=== PATIENT | female | born 1980 | race Caucasian/White ===

== ENCOUNTER 2022-01-12 11:12 | Outpatient (CLI) | payer BC ==
[~2022-01-12] VITALS: Ht 172.7 cm; Wt 87.1 kg
[2022-01-12] MEDS ORDERED: FAMO20TA3 PO (12:15)
== END 2022-01-12 12:35 | disposition home or self-care (01) ==
LOC: PREOP 11:12
PROVIDERS: ATTEND Surgery
DX: Z01.818 Encounter for other preprocedural examination (principal)

== ENCOUNTER 2022-01-26 09:12 | Day surgery (SDC) | payer BC ==
[~2022-01-26] VITALS: Ht 172.7 cm; Wt 87.1 kg
[~2022-01-26 09:12] MED LIST: FAMO20TA3 PO
[2022-01-26] MEDS ORDERED: LACTATED RINGERS 1,000 ML IV STA (09:14)
[2022-01-26] MEDS ORDERED: HURRICAINE EXT TUBE (BENZOCAINE) XX PRN (09:15)
[2022-01-26] MEDS ORDERED: LIDOCAINE JELLY 2% 6 ML SYRINGE MM PRN (09:15)
[2022-01-26 09:30] VITALS: BP 130/90
[2022-01-26] MEDS ORDERED: proPOfol 200 MG/20 ML (DIPRIVAN) VIAL IV ONE ×2 (10:44→11:32)
[2022-01-26] MEDS ORDERED: MIDAZOLAM 2 MG/2 ML (VERSED) VIAL ONE (10:44)
[2022-01-26] MEDS ORDERED: PANT40TA2 PO (11:20)
--- NOTE | 2022-01-26 11:20 | Progress Note-Pre Operative ---
Pre-Operative Progress Note H&P Reviewed The H&P was reviewed, patient examined and no changes noted. Date Seen by Provider: January 26, 2022 Time Seen by Provider: 10:30 Date H&P Reviewed: January 26, 2022 Time H&P Reviewed: 10:30 Pre-Operative Diagnosis: GERD, dysphagia REJI LAZO MD January 26, 2022 11:19
--- NOTE | 2022-01-26 11:21 | Discharge Inst-Surgical ---
D/C Lap Instructions-KIDO New, Converted, or Re-Newed RX: RX on Chart Follow Up Activity as tolerated High Fiber Diet 25g or more per day Avoid Alcohol, Caffeine, Spicy [place] and Acid foods. Drink 64 fluid oz or more of fluids per day. Symptoms to Report: Fever over 101 degree F, Nausea/Vomiting If any problems/questions: Contact your physician or go to Emergency Room REJI LAZO MD January 26, 2022 11:21
[2022-01-26] MEDS ORDERED: ONDANSETRON 4 MG/2 ML (SDV) Z0FRAN IVP PRN (11:30)
[2022-01-26] MEDS ORDERED: ONDANSETRON 4 MG (ZOFRAN) ORAL DISSOLVE TAB PO PRN (11:30)
[2022-01-26 11:50] VITALS: BP 147/68
[2022-01-26 11:53] VITALS: BP 113/62
[2022-01-26 11:55] VITALS: BP 113/62
--- NOTE | 2022-01-26 12:03 | Anesthesia-General Post-Op ---
MAC Patient Condition Mental Status/LOC: Same as Preop Cardiovascular: Satisfactory Nausea/Vomiting: Absent Respiratory: Satisfactory Pain: Controlled Complications: Absent Post Op Complications Complications None Follow Up Care/Instructions Patient Instructions None needed. Anesthesiology Discharge Order Discharge Order Patient is doing well, no complaints, stable vital signs, no apparent adverse anesthesia problems. No complications reported per nursing. CROW FARIAS CRNA January 26, 2022 12:02
--- NOTE | 2022-01-26 12:07 | Progress Note-Post Operative ---
Post-Operative Progess Note Surgeon (s)/Plant Operator Helper (s) Surgeon REJI LAZO MD Plant Operator Helper: none Pre-Operative Diagnosis GERD, dysphagia Post-Operative Diagnosis reflux esophagitis(grade C), mild dist esoph stricture, type 1 HH(2cm), mod gastitis. Procedure & Operative Findings Date of Procedure 01/26/22 Procedure Performed/Findings EGD with bx and balloon dilatation. Anesthesia Type mac Estimated Blood Loss Estimated blood loss (mL): minimal Specimens/Packing Specimens Removed ge jxn, antrum REJI LAZO MD January 26, 2022 12:07
[2022-01-26 12:16] VITALS: BP 133/94
--- NOTE | 2022-01-26 18:32 | OPERATIVE REPORT ---
DATE OF SERVICE: 01/26/2022 PREOPERATIVE DIAGNOSES: Gastroesophageal reflux disease and dysphagia. POSTOPERATIVE DIAGNOSES: Reflux esophagitis, Nance grade C, mild distal esophageal stricture, small hiatal hernia approximately 2 cm in size, moderate gastritis. No distal obstructions. PROCEDURE: EGD with biopsy and balloon dilatation. SURGEON: Reji Lazo MD ANESTHESIA: Monitored anesthesia care. ESTIMATED BLOOD LOSS: Minimal. FINDINGS: Same as postoperative diagnoses. DISPOSITION: The patient tolerated the procedure well. INDICATIONS: The patient is a 41-year-old female who has been experiencing issues with gastroesophageal reflux disease for years; however, this has slowly progressed to difficulty swallowing of different types of foods. She states that she has been taking Pepcid [id number], which initially helped; however, has become less effective. She does not smoke or drink alcohol. DESCRIPTION OF PROCEDURE: The patient was brought to the endoscopy suite, laid in left lateral decubitus position. After adequate IV pain and sedative medications and monitored anesthesia care, the mouthpiece was applied. The endoscope was placed in the mouth, visualizing the pharynx and hypopharyngeal region. Vocal cords, epiglottis and vallecula identified and appeared to be normal. The endoscope was then gently intubated into the esophageal opening and esophagus insufflated. The endoscope was then advanced through the first, second and third portion of esophagus at the level of the GE junction, a reflux esophagitis, Nance grade C identified. There was also a mild distal esophageal stricture identified. A biopsy was taken with forceps with visualization of good hemostasis. The endoscope was then advanced in the stomach and endoscope retroflexed, visualizing a small type 1 sliding hiatal hernia approximately 2 cm in size. There was moderate severity gastritis. No ulcerations. A biopsy was taken of the antrum to rule out H. pylori with visualization of good hemostasis. The endoscope was then advanced to the pylorus and the first and second portion of the duodenum, which appeared normal with no distal obstructions. The balloon was then placed in the stomach and pulled back to the area of stricture. We then proceeded with dilatation of the stricture in a graded stepwise fashion from 2, 4, then eventually 6 atmospheres of pressure or 20 mm in luminal diameter with moderate resistance and left this in place for 60 seconds. The balloon was then desufflated and removed with visualization of good hemostasis as well as no mucosal tears. The endoscope was then slowly withdrawn while taking a second look and suctioning of residual air with no additional findings. The patient tolerated the procedure well. We will recommend the necessary lifestyle and dietary accommodation including small and more frequent meals, avoiding to eating at night as well as head elevation while lying supine. She also needs to avoid caffeinated beverages, spicy, greasy and acidic foods. We will also start her on Protonix 40 mg daily. Job ID: [id number] DocumentID: [id number] Dictated Date: 01/26/2022 11:52:24 Cartography Teacher Date: 01/26/2022 18:31:40 Dictated By: REJI LAZO MD
== END 2022-01-26 12:19 | disposition home or self-care (01) ==
LOC: ENDO 09:12
PROVIDERS: ATTEND Surgery
DX: K21.00 Gastro-esophageal reflux disease with esophagitis, without bleeding (principal); K22.2 Esophageal obstruction; K29.70 Gastritis, unspecified, without bleeding; K44.9 Diaphragmatic hernia without obstruction or gangrene
CPT/HCPCS: 84703; 88305